=== PATIENT | female | born 1985 | race Caucasian/White ===

== ENCOUNTER 2018-04-28 23:29 | Emergency (ER) | payer OTHER ==
[~2018-04-28] VITALS: Ht 152.4 cm; Wt 54.4 kg
[~2018-04-28 23:29] MED LIST: AMOXICILLIN500 M1 PO; FLEXERIL PO; NOHOMEMEDICATIONS; PEPCID40 MG PO; ULTRAM 50MG TAB50 MG PO
[2018-04-29 01:31] VITALS: BP 106/62
== END 2018-04-29 01:32 | disposition home or self-care (01) ==
LOC: ER 23:29
DX: J06.9 Acute upper respiratory infection, unspecified (principal); R19.7 Diarrhea, unspecified; Z88.6 Allergy status to analgesic agent; Z98.890 Other specified postprocedural states